=== PATIENT | female | born 1985 | race Caucasian/White ===

== ENCOUNTER 2018-09-23 13:05 | Day surgery (SDC) | payer OTHER ==
[2018-09-23] MEDS ORDERED: FENTAnyl 50 MCG/ML VIAL (17:39)
[2018-09-23] MEDS ORDERED: MIDAZOLAM 1 MG/ML 2 ML INJ ×2 (17:40)
== END 2018-09-23 18:23 | disposition home or self-care (01) ==
LOC: GIL 13:05
DX: K92.1 Melena (principal); K51.90 Ulcerative colitis, unspecified, without complications
CPT/HCPCS: 45380; 84703; 87177; 88305